=== PATIENT | female | born 1955 | race Caucasian/White ===

== ENCOUNTER → 2023-10-31 13:07 | Outpatient (REF) | payer BC, SELFPAY ==
[2023-10-31 18:53] LABS: Urine Albumin Negative (Neg - Trace); Urine Bilirubin Negative (Negative); Urine Character Clear (Clear); Urine Color Yellow; Urine Glucose Negative (Negative); Urine Ketone Negative (Negative); Urine Leukocyte Negative (Negative); Urine Nitrite Negative (Negative); Urine Occult Blood Negative (Negative); Urine Specific Gravity 1.005 (<1.030); Urine Urobilinogen Negative (Neg - 1+)
== END ==
LOC: REG 13:07
PROVIDERS: ATTENDING PHYSICIAN Internal Medicine
DX: R82.90 Unspecified abnormal findings in urine (principal)
CPT/HCPCS: 81003; 87086

== ENCOUNTER → 2025-02-27 09:41 | Outpatient (REF) | payer BC, SELFPAY ==
[2025-02-27 10:25] LABS: Hematocrit 41.9 % (37.0-47.0); Hemoglobin 14.2 g/dL (12.0-16.0); Mean Corp Hgb Conc. 33.9 g/dL (33.0-37.0); Mean Corpuscular Volume 92.5 fL (81.0-99.0); Nucleated Red Blood Cells % 0 %; Platelet Count 258 10^3/uL (130-400); Red Cell Dist. Width 12.8 % (11.5-14.5)
[2025-02-27 10:53] LABS: ALT (SGPT) 15 U/L (0-35); AST (SGOT) 19 U/L (14-36); Albumin 4.7 g/dl (3.5-5.0); Alkaline Phosphatase 75 U/L (38-126); Blood Urea Nitrogen 11 mg/dl (7-17); Calcium 9.7 mg/dl (8.4-10.2); Carbon Dioxide 25 mmol/L (22-30); Chloride 107 mmol/L (98-107); Glucose 97 mg/dl (70-99); HDL Cholesterol 62 mg/dl; LDL Cholesterol, Calculated 149 mg/dl; Potassium 4.3 mmol/L (3.5-5.1); Sodium 140 mmol/L (135-145); Total Protein 6.8 g/dl (6.3-8.2); Very Low Density Lipoprotein 28 mg/dl (0-30); eGFR > 60.00
[2025-02-27 10:57] LABS: Urine Character Clear (Clear)
[2025-02-27 11:15] LABS: TSH 2.05 uIU/ml (0.47-4.68)
[2025-02-27 12:24] LABS: Urine Squamous Cell >30 /LPF (Few)
[2025-02-27 12:25] LABS: Urine Urothelial Cell 0-2 /LPF (FEW)
[2025-02-27 12:26] LABS: Urine Red Blood Cell 0-2 /HPF (0-2)
[2025-02-28 14:14] LABS: Lyme Antibody Screen, EIA Negative (Negative)
== END ==
LOC: REG 09:41
PROVIDERS: ATTENDING PHYSICIAN Internal Medicine
DX: I10 Essential (primary) hypertension (principal); W57.XXXA Bitten or stung by nonvenomous insect and other nonvenomous arthropods, initial encounter; M25.512 Pain in left shoulder; Z82.49 Family history of ischemic heart disease and other diseases of the circulatory system
CPT/HCPCS: 36415; 80053; 80061; 81003; 81015; 84443; 85025; 85652; 86618

== ENCOUNTER → 2025-06-04 13:03 | Outpatient (REF) | payer BC, SELFPAY | LOC: WDC 13:03 | PROVIDERS: ATTENDING PHYSICIAN Internal Medicine | DX: Z12.31 Encounter for screening mammogram for malignant neoplasm of breast (principal); Z13.820 Encounter for screening for osteoporosis | CPT/HCPCS: 77063; 77067; 77080 ==

== ENCOUNTER → 2025-06-17 13:22 | Outpatient (REF) | payer BC, SELFPAY ==
[2025-06-17 14:53] LABS: Vitamin D, 25-OH*** 42.2 ng/mL (30-80)
== END ==
LOC: REG 13:22
PROVIDERS: ATTENDING PHYSICIAN Internal Medicine
DX: M81.0 Age-related osteoporosis without current pathological fracture (principal)
CPT/HCPCS: 36415; 82306